=== PATIENT | male | born 1935 | race Caucasian/White ===

== ENCOUNTER 2022-04-01 19:42 | Inpatient (IN) ==
[2022-04-01] MEDS ORDERED: PANTOPRAZOLE 40 MG VIAL IV STA (20:07)
[2022-04-01] MEDS ORDERED: LORazepam 2 MG/1 ML VIAL IV STA (20:56)
[2022-04-01 21:03] LABS: Basophils # 0.1 10*3/uL (0.0-0.2); Basophils % 0.8 % (0.0-0.8); Eosinophils # 0.1 10*3/uL (0.0-0.87); Eosinophils % 0.7 % (0.00-10.9); Hematocrit 39.8 VOL% (42.0-52.0); Hemoglobin 12.8 GM/DL (14.0-18.0); Immature Granulocytes % 0.2 %; Immature Granulocytes Absolute 0.02 #; Lymphocytes # 0.9 10*3/uL (1.4-4.0); Mean Corpuscular HGB Conc 32.2 GM/DL (32-36); Mean Corpuscular Volume 96.8 FL (87-102); Mean Platelet Volume 8.6 FL (9.6-12.0); Monocytes # 0.7 10*3/uL (0.11-0.8); Monocytes % 7.2 % (1.7-12.7); Neutrophils % 82.1 % (38.7-73.9); Platelet Count 249 T/CUMM (130-400); Red Blood Count 4.11 MC/CUMM (3.8-5.5); Red Cell Distribution Width 13.7 % (9.3-17.3)
[2022-04-01 21:14] LABS: PT Patient Result 11.5 SECS (10.1-12.1)
[2022-04-01 21:25] LABS: Bilirubin,Total 0.4 MG/DL (0.20-1.00); Osmolality,Calculated 288.8 MOS/KG (273-304); Potassium 3.7 MMOL/L (3.5-5.1); Total Protein 6.1 G/DL (6.4-8.2)
[2022-04-01 21:51] LABS: Bilirubin,Urine Negative (Negative); Blood, Urine Negative (Negative); Calcium Oxalate Crystals,Urine Few /HPF (Few); Glucose,Urine (UA) Negative (Negative); Hyaline Casts,Urine 5 /LPF (0-3); Ketones,Urine Trace mg/dL (Negative); Mucus,Urine Occasional /LPF (Occasional); Nitrite,Urine Negative (Negative); Protein,Urine Negative (Negative); RBC,Urine 1 /HPF (0-4); Urine Appearance Clear (Clear); Urine Color Yellow (Yellow)
[2022-04-01] MEDS ORDERED: MAGNESIUM HYDROXIDE SUSP 30 ML UDCUP PO STA (23:50)
[2022-04-02] MEDS ORDERED: hydrALAZINE 20 MG/1 ML VIAL IV PRN (00:20)
[2022-04-02] MEDS ORDERED: ONDANSETRON 4 MG/2 ML VIAL IV PRN (00:20)
[2022-04-02] MEDS: LACTATED RINGERS 1,000 ML IV SCH ×4 (01:02→22:51)
[2022-04-02 06:04] LABS: Hematocrit 37.9 VOL% (42.0-52.0); Hemoglobin 12.7 GM/DL (14.0-18.0)
[2022-04-02 06:43] LABS: Calcium 8.8 MG/DL (8.5-10.1); Osmolality,Calculated 282.3 MOS/KG (273-304); Potassium 4.3 MMOL/L (3.5-5.1)
[2022-04-02] MEDS: PANTOPRAZOLE 40 MG VIAL IV SCH ×2 (08:11→21:14)
[2022-04-02 10:04] LABS: Hematocrit 39.3 VOL% (42.0-52.0); Hemoglobin 13.1 GM/DL (14.0-18.0)
[2022-04-02] MEDS: POLYETHYLENE GLYCOL POWDER 17 GM PACK PO SCH ×2 (10:17→21:14)
[2022-04-02] MEDS ORDERED: LACTULOSE 20 GM/30 ML UDCUP PO ONE (11:18)
[2022-04-02 16:29] LABS: Hematocrit 38.9 VOL% (42.0-52.0); Hemoglobin 13.1 GM/DL (14.0-18.0)
[2022-04-02] MEDS: ACETAMINOPHEN 325 MG TABLET PO PRN (21:14)
[2022-04-02 22:41] LABS: Hematocrit 34.9 VOL% (42.0-52.0); Hemoglobin 11.7 GM/DL (14.0-18.0)
[2022-04-03] MEDS ORDERED: ALBUTEROL/IPRATROPIUM 3 ML NEB RESP TX PRN (04:10)
[2022-04-03 05:29] LABS: Basophils # 0.1 10*3/uL (0.0-0.2); Basophils % 0.2 % (0.0-0.8); Hematocrit 33.3 VOL% (42.0-52.0); Immature Granulocytes % 2.4 %; Immature Granulocytes Absolute 0.56 #; Lymphocytes # 0.9 10*3/uL (1.4-4.0); Lymphocytes % 3.8 % (21.2-54.2); Mean Corpuscular Volume 95.1 FL (87-102); Mean Platelet Volume 8.8 FL (9.6-12.0); Monocytes # 1.6 10*3/uL (0.11-0.8); Monocytes % 6.9 % (1.7-12.7); Neutrophils % 86.7 % (38.7-73.9); Platelet Count 210 T/CUMM (130-400); Red Cell Distribution Width 13.9 % (9.3-17.3); White Blood Count 23.4 T/CUMM (4-12)
[2022-04-03 05:41] LABS: Calcium 8.7 MG/DL (8.5-10.1); Potassium 3.7 MMOL/L (3.5-5.1)
[2022-04-03 06:03] LABS: Band Neutrophils 6 % (0-10); Lymphocytes 3 % (20-55); Macrocytosis Slight; Total Cells Counted 100
[2022-04-03 06:04] LABS: Ovalocytes Slight; Platelet Estimate Normal
[2022-04-03] MEDS: LACTATED RINGERS 1,000 ML IV SCH ×3 (08:30→23:56)
[2022-04-03] MEDS: POLYETHYLENE GLYCOL POWDER 17 GM PACK PO SCH (09:04)
[2022-04-03] MEDS: PANTOPRAZOLE 40 MG VIAL IV SCH ×2 (09:05→21:23)
[2022-04-03] MEDS ORDERED: SODIUM CHLORIDE 0.9% 1,000 ML IV ONE ×2 (09:12→11:20)
[2022-04-03] MEDS ORDERED: POLYETHYLENE GLYCOL POWDER 17 GM PACK PO PRN (09:14)
[2022-04-03] MEDS: cefTRIAXone 1,000 MG in SODIUM CHLORIDE 0.9% 100 ML IV SCH (11:52)
[2022-04-03 12:07] LABS: Bacteria,Urine Occasional /HPF (Few); Mucus,Urine Occasional /LPF (Occasional); RBC,Urine 11 /HPF (0-4); Squamous Epithelial Cell,Urine Occasional /HPF (0-10)
[2022-04-03 12:14] LABS: Urine Appearance Slightly Hazy (Clear); Urine Color Yellow (Yellow); Urine Specific Gravity > 1.030 (1.001-1.035); Urine pH 5.5 (4.5-8.0)
[2022-04-03 12:15] LABS: Bilirubin,Urine Negative (Negative); Blood, Urine Small mg/dL (Negative); Glucose,Urine (UA) Negative (Negative); Ketones,Urine Negative (Negative); Nitrite,Urine Positive (Negative); Protein,Urine Trace mg/dL (Negative); Urine Urobilinogen 0.2 eU/dL (<2.0)
[2022-04-03] MEDS: AZITHROMYCIN INJ 500 MG in SODIUM CHLORIDE 0.9% 250 ML IV SCH (12:29)
[2022-04-03] MEDS: MULTIVITAMIN (OCUVITE) TABLET PO SCH (21:23)
[2022-04-03] MEDS: hydrOXYzine HCL 10 MG TABLET PO SCH (21:23)
[2022-04-04] MEDS: ALBUTEROL/IPRATROPIUM 3 ML NEB RESP TX SCH ×2 (02:20→19:00)
[2022-04-04 06:24] LABS: Basophils % 0.2 % (0.0-0.8); Hemoglobin 11.6 GM/DL (14.0-18.0); Immature Granulocytes % 1.9 %; Immature Granulocytes Absolute 0.33 #; Lymphocytes # 0.6 10*3/uL (1.4-4.0); Lymphocytes % 3.3 % (21.2-54.2); Mean Corpuscular HGB Conc 33.1 GM/DL (32-36); Mean Corpuscular Volume 94.6 FL (87-102); Mean Platelet Volume 9.6 FL (9.6-12.0); Monocytes # 0.9 10*3/uL (0.11-0.8); Monocytes % 5.2 % (1.7-12.7); Neutrophils % 89.4 % (38.7-73.9); Platelet Count 206 T/CUMM (130-400); Red Cell Distribution Width 13.8 % (9.3-17.3); White Blood Count 17.4 T/CUMM (4-12)
[2022-04-04 06:49] LABS: Band Neutrophils 3 % (0-10); Lymphocytes 2 % (20-55); Microcytosis 1+; Total Cells Counted 100
[2022-04-04 06:50] LABS: Ovalocytes Slight; Platelet Estimate Normal
[2022-04-04 06:56] LABS: Albumin 2.8 G/DL (3.4-5.0); Bilirubin,Total 0.4 MG/DL (0.20-1.00); Calcium 8.2 MG/DL (8.5-10.1); Osmolality,Calculated 285.1 MOS/KG (273-304); Potassium 3.5 MMOL/L (3.5-5.1); Total Protein 5.7 G/DL (6.4-8.2)
[2022-04-04] MEDS: LACTATED RINGERS 1,000 ML IV SCH ×2 (07:16→14:59)
[2022-04-04] MEDS ORDERED: ALBUTEROL 2.5 MG/3 ML NEB RESP TX PRN (08:57)
[2022-04-04] MEDS: SERTRALINE 25 MG TABLET PO SCH (09:31)
[2022-04-04] MEDS: MULTIVITAMIN (OCUVITE) TABLET PO SCH ×2 (09:31→20:39)
[2022-04-04] MEDS: PANTOPRAZOLE 40 MG VIAL IV SCH ×3 (09:34→20:44)
[2022-04-04] MEDS: cefTRIAXone 1,000 MG in SODIUM CHLORIDE 0.9% 100 ML IV SCH (09:34)
[2022-04-04] MEDS: AZITHROMYCIN INJ 500 MG in SODIUM CHLORIDE 0.9% 250 ML IV SCH (11:04)
[2022-04-04] MEDS ORDERED: POTASSIUM CHLORIDE 20 MEQ TABLET PO ONE (18:54)
[2022-04-04] MEDS: hydrOXYzine HCL 10 MG TABLET PO SCH (20:40)
[2022-04-04] MEDS: ATORVASTATIN 10 MG TABLET PO SCH (20:44)
[2022-04-04] MEDS: METOPROLOL TARTRATE 5 MG/5 ML VIAL IV SCH ×4 (20:57→23:00)
[2022-04-04] MEDS ORDERED: METOPROLOL TARTRATE 50 MG TABLET PO ONE (22:51)
[2022-04-04] MEDS: APIXABAN 5 MG TABLET PO SCH (23:07)
[2022-04-05] MEDS: ALBUTEROL/IPRATROPIUM 3 ML NEB RESP TX SCH ×4 (00:35→19:18)
[2022-04-05] MEDS: DIGOXIN 0.5 MG/2 ML AMP IV SCH ×2 (01:23→07:54)
[2022-04-05] MEDS: LACTATED RINGERS 1,000 ML IV SCH (01:24)
[2022-04-05 06:42] LABS: Basophils # 0.1 10*3/uL (0.0-0.2); Basophils % 0.4 % (0.0-0.8); Eosinophils # 0.1 10*3/uL (0.0-0.87); Eosinophils % 0.5 % (0.00-10.9); Hematocrit 32.5 VOL% (42.0-52.0); Hemoglobin 10.8 GM/DL (14.0-18.0); Immature Granulocytes % 0.6 %; Immature Granulocytes Absolute 0.07 #; Lymphocytes # 1.3 10*3/uL (1.4-4.0); Lymphocytes % 10.4 % (21.2-54.2); Mean Corpuscular HGB Conc 33.2 GM/DL (32-36); Mean Corpuscular Volume 95.3 FL (87-102); Mean Platelet Volume 9.2 FL (9.6-12.0); Monocytes % 7.9 % (1.7-12.7); Neutrophils % 80.2 % (38.7-73.9); Platelet Count 184 T/CUMM (130-400); Red Blood Count 3.41 MC/CUMM (3.8-5.5); Red Cell Distribution Width 13.7 % (9.3-17.3)
[2022-04-05 07:02] LABS: Calcium 8.2 MG/DL (8.5-10.1); Osmolality,Calculated 288.8 MOS/KG (273-304); Potassium 3.6 MMOL/L (3.5-5.1)
[2022-04-05 08:09] LABS: Thyroid Stimulating Hormone 4.18 uIU/ml (0.358-3.74)
[2022-04-05 08:45] LABS: Free T4 (Free Thyroxine) 1.21 NG/DL (0.76-1.46)
[2022-04-05] MEDS: PANTOPRAZOLE 40 MG VIAL IV SCH ×2 (08:56→20:45)
[2022-04-05] MEDS: SERTRALINE 25 MG TABLET PO SCH (08:57)
[2022-04-05] MEDS: APIXABAN 5 MG TABLET PO SCH ×2 (08:57→20:44)
[2022-04-05] MEDS: MULTIVITAMIN (OCUVITE) TABLET PO SCH ×2 (08:57→20:44)
[2022-04-05] MEDS: AZITHROMYCIN INJ 500 MG in SODIUM CHLORIDE 0.9% 250 ML IV SCH (09:04)
[2022-04-05] MEDS ORDERED: MAGNESIUM SULF RIDER 2 GM/50 ML PREMIX IV ONE (09:31)
[2022-04-05] MEDS ORDERED: POTASSIUM CHLORIDE 20 MEQ TABLET PO ONE (09:32)
[2022-04-05] MEDS ORDERED: AMIODARONE INJ 150 MG in DEXTROSE 5% 100 ML IV ONE (09:58)
[2022-04-05] MEDS ORDERED: AMIODARONE INJ 450 MG in DEXTROSE 5% 241 ML IV SCH (10:00)
[2022-04-05] MEDS: cefTRIAXone 1,000 MG in SODIUM CHLORIDE 0.9% 100 ML IV SCH (10:09)
[2022-04-05] MEDS ORDERED: AMIODARONE 150 MG/3 ML VIAL ONE (10:29)
[2022-04-05] MEDS ORDERED: AMIODARONE 450 MG/9 ML VIAL IV ONE (10:29)
[2022-04-05] MEDS ORDERED: SODIUM CHLORIDE 0.45% 1,000 ML IV SCH (10:30)
[2022-04-05] MEDS: AMIODARONE INJ 450 MG in DEXTROSE 5% 241 ML IV SCH (17:07)
[2022-04-05] MEDS: hydrOXYzine HCL 10 MG TABLET PO SCH (20:44)
[2022-04-05] MEDS: ATORVASTATIN 10 MG TABLET PO SCH (20:44)
[2022-04-06] MEDS: ALBUTEROL/IPRATROPIUM 3 ML NEB RESP TX SCH ×4 (00:35→19:20)
[2022-04-06 06:35] LABS: Basophils % 0.4 % (0.0-0.8); Eosinophils # 0.1 10*3/uL (0.0-0.87); Eosinophils % 1.3 % (0.00-10.9); Hemoglobin 11.2 GM/DL (14.0-18.0); Immature Granulocytes % 0.6 %; Immature Granulocytes Absolute 0.06 #; Lymphocytes % 10.1 % (21.2-54.2); Mean Corpuscular HGB Conc 32.9 GM/DL (32-36); Mean Corpuscular Volume 94.2 FL (87-102); Mean Platelet Volume 9.7 FL (9.6-12.0); Monocytes # 0.7 10*3/uL (0.11-0.8); Monocytes % 6.8 % (1.7-12.7); Neutrophils % 80.8 % (38.7-73.9); Platelet Count 218 T/CUMM (130-400); Red Blood Count 3.61 MC/CUMM (3.8-5.5); Red Cell Distribution Width 13.5 % (9.3-17.3); White Blood Count 9.6 T/CUMM (4-12)
[2022-04-06 06:52] LABS: Calcium 7.9 MG/DL (8.5-10.1); Osmolality,Calculated 280.3 MOS/KG (273-304); Potassium 3.1 MMOL/L (3.5-5.1)
[2022-04-06 06:53] LABS: Calcium 8.1 MG/DL (8.5-10.1); Osmolality,Calculated 282.1 MOS/KG (273-304); Potassium 3.3 MMOL/L (3.5-5.1)
[2022-04-06] MEDS: APIXABAN 5 MG TABLET PO SCH ×2 (08:26→20:20)
[2022-04-06] MEDS: PANTOPRAZOLE 40 MG VIAL IV SCH ×2 (08:26→20:27)
[2022-04-06] MEDS: MULTIVITAMIN (OCUVITE) TABLET PO SCH ×2 (08:26→20:26)
[2022-04-06] MEDS: SERTRALINE 25 MG TABLET PO SCH (08:27)
[2022-04-06] MEDS: cefTRIAXone 1,000 MG in SODIUM CHLORIDE 0.9% 100 ML IV SCH (08:35)
[2022-04-06] MEDS ORDERED: POTASSIUM CHLORIDE 20 MEQ TABLET PO ONE (08:39)
[2022-04-06] MEDS: AMIODARONE INJ 450 MG in DEXTROSE 5% 241 ML IV SCH ×2 (09:11→23:27)
[2022-04-06] MEDS: METOPROLOL TARTRATE 25 MG TABLET PO SCH ×2 (09:30→20:27)
[2022-04-06] MEDS: AZITHROMYCIN INJ 500 MG in SODIUM CHLORIDE 0.9% 250 ML IV SCH (09:30)
[2022-04-06] MEDS: AMIODARONE 200 MG TABLET PO SCH ×2 (09:30→20:26)
[2022-04-06] MEDS: ASCORBIC ACID 500 MG TABLET PO SCH ×2 (09:30→20:26)
[2022-04-06] MEDS ORDERED: LORazepam 2 MG/1 ML VIAL IV ONE ×2 (11:44→22:35)
[2022-04-06] MEDS: hydrOXYzine HCL 10 MG TABLET PO SCH (20:26)
[2022-04-06] MEDS: ATORVASTATIN 10 MG TABLET PO SCH (20:27)
[2022-04-06] MEDS ORDERED: LORazepam 0.5 MG TABLET PO PRN (22:35)
[2022-04-07] MEDS: LORazepam 1 MG TABLET PO PRN ×2 (00:19→11:50)
[2022-04-07] MEDS ORDERED: LORazepam 2 MG/1 ML VIAL IV ONE (03:15)
[2022-04-07 04:46] LABS: Basophils # 0.1 10*3/uL (0.0-0.2); Basophils % 0.4 % (0.0-0.8); Eosinophils % 0.2 % (0.00-10.9); Hematocrit 36.8 VOL% (42.0-52.0); Immature Granulocytes % 0.8 %; Immature Granulocytes Absolute 0.12 #; Lymphocytes # 0.7 10*3/uL (1.4-4.0); Lymphocytes % 4.5 % (21.2-54.2); Mean Corpuscular HGB Conc 32.6 GM/DL (32-36); Mean Corpuscular Volume 94.6 FL (87-102); Mean Platelet Volume 9.4 FL (9.6-12.0); Monocytes # 1.1 10*3/uL (0.11-0.8); Monocytes % 6.6 % (1.7-12.7); Neutrophils % 87.5 % (38.7-73.9); Platelet Count 260 T/CUMM (130-400); Red Blood Count 3.89 MC/CUMM (3.8-5.5); Red Cell Distribution Width 13.6 % (9.3-17.3); White Blood Count 15.9 T/CUMM (4-12)
[2022-04-07 05:01] LABS: Calcium 8.9 MG/DL (8.5-10.1); Osmolality,Calculated 281.1 MOS/KG (273-304); Potassium 3.5 MMOL/L (3.5-5.1)
[2022-04-07 05:08] LABS: Lymphocytes 4 % (20-55); Total Cells Counted 100
[2022-04-07] MEDS: ALBUTEROL/IPRATROPIUM 3 ML NEB RESP TX SCH ×4 (07:11→19:36)
[2022-04-07] MEDS ORDERED: POTASSIUM CHLORIDE 20 MEQ TABLET PO ONE (08:49)
[2022-04-07] MEDS ORDERED: MAGNESIUM SULF RIDER 2 GM/50 ML PREMIX IV ONE (08:49)
[2022-04-07] MEDS ORDERED: FUROSEMIDE 40 MG/4 ML VIAL IV ONE (08:49)
[2022-04-07] MEDS: APIXABAN 5 MG TABLET PO SCH ×2 (09:04→20:03)
[2022-04-07] MEDS: METOPROLOL TARTRATE 25 MG TABLET PO SCH ×2 (09:04→20:02)
[2022-04-07] MEDS: MULTIVITAMIN (OCUVITE) TABLET PO SCH ×2 (09:04→20:02)
[2022-04-07] MEDS: AMIODARONE 200 MG TABLET PO SCH ×2 (09:04→20:03)
[2022-04-07] MEDS: PANTOPRAZOLE 40 MG VIAL IV SCH ×2 (09:04→20:05)
[2022-04-07] MEDS: ASCORBIC ACID 500 MG TABLET PO SCH ×2 (09:05→20:02)
[2022-04-07] MEDS: SERTRALINE 25 MG TABLET PO SCH (09:05)
[2022-04-07] MEDS: cefTRIAXone 1,000 MG in SODIUM CHLORIDE 0.9% 100 ML IV SCH (09:05)
[2022-04-07] MEDS: AZITHROMYCIN INJ 500 MG in SODIUM CHLORIDE 0.9% 250 ML IV SCH (09:25)
[2022-04-07] MEDS ORDERED: DIGOXIN 0.5 MG/2 ML AMP IV ONE (10:46)
[2022-04-07] MEDS ORDERED: METOPROLOL TARTRATE 5 MG/5 ML VIAL IV ONE ×2 (12:48→13:05)
[2022-04-07] MEDS: MEROPENEM 500 MG in SODIUM CHLORIDE 0.9% 100 ML IV SCH ×2 (13:32→18:02)
[2022-04-07] MEDS: hydrOXYzine HCL 10 MG TABLET PO SCH (20:02)
[2022-04-07] MEDS: ATORVASTATIN 10 MG TABLET PO SCH (20:03)
[2022-04-08] MEDS: ALBUTEROL/IPRATROPIUM 3 ML NEB RESP TX SCH ×4 (00:59→19:30)
[2022-04-08] MEDS: MEROPENEM 500 MG in SODIUM CHLORIDE 0.9% 100 ML IV SCH ×4 (01:13→18:00)
[2022-04-08 06:37] LABS: Basophils # 0.1 10*3/uL (0.0-0.2); Basophils % 0.3 % (0.0-0.8); Eosinophils % 0.2 % (0.00-10.9); Hematocrit 38.3 VOL% (42.0-52.0); Hemoglobin 12.5 GM/DL (14.0-18.0); Immature Granulocytes % 0.7 %; Immature Granulocytes Absolute 0.13 #; Lymphocytes % 5.8 % (21.2-54.2); Mean Corpuscular HGB Conc 32.6 GM/DL (32-36); Mean Corpuscular Volume 94.1 FL (87-102); Mean Platelet Volume 9.2 FL (9.6-12.0); Monocytes # 1.3 10*3/uL (0.11-0.8); Monocytes % 7.4 % (1.7-12.7); Neutrophils % 85.6 % (38.7-73.9); Platelet Count 324 T/CUMM (130-400); Red Blood Count 4.07 MC/CUMM (3.8-5.5); Red Cell Distribution Width 13.6 % (9.3-17.3); White Blood Count 17.4 T/CUMM (4-12)
[2022-04-08 07:10] LABS: Calcium 9.1 MG/DL (8.5-10.1); Osmolality,Calculated 283.1 MOS/KG (273-304); Potassium 3.3 MMOL/L (3.5-5.1)
[2022-04-08] MEDS: ASCORBIC ACID 500 MG TABLET PO SCH ×2 (08:14→20:01)
[2022-04-08] MEDS: METOPROLOL TARTRATE 25 MG TABLET PO SCH ×2 (08:14→20:00)
[2022-04-08] MEDS: AMIODARONE 200 MG TABLET PO SCH (08:14)
[2022-04-08] MEDS: APIXABAN 5 MG TABLET PO SCH ×2 (08:14→20:00)
[2022-04-08] MEDS: MULTIVITAMIN (OCUVITE) TABLET PO SCH ×2 (08:14→20:00)
[2022-04-08] MEDS: PANTOPRAZOLE 40 MG VIAL IV SCH ×2 (08:14→20:00)
[2022-04-08] MEDS: SERTRALINE 25 MG TABLET PO SCH (08:14)
[2022-04-08] MEDS ORDERED: AMIODARONE INJ 450 MG in DEXTROSE 5% 241 ML IV SCH (09:00)
[2022-04-08] MEDS: AZITHROMYCIN INJ 500 MG in SODIUM CHLORIDE 0.9% 250 ML IV SCH (09:10)
[2022-04-08] MEDS ORDERED: FUROSEMIDE 40 MG/4 ML VIAL IV ONE (12:21)
[2022-04-08 12:42] LABS: Arterial Base Excess iSTAT 2 MMOL/L (-2.5-2.5); Arterial Bicarbonate iSTAT 25.6 MMOL/L (20-26); Arterial O2 Saturation iSTAT 97 % (95-100); Arterial PCO2 iSTAT 37 MM HG (35-48); Arterial PO2 iSTAT 86 MM HG (80-95); Arterial Total CO2 iSTAT 27 MMO/L (23-27); Arterial pH iSTAT 7.444 (7.35-7.45)
[2022-04-08] MEDS: POTASSIUM CHLORIDE RIDER 10 MEQ/100 ML PREMIX IV PRN ×5 (12:58→23:39)
[2022-04-08] MEDS: AMIODARONE INJ 450 MG in DEXTROSE 5% 241 ML IV SCH (14:56)
[2022-04-08] MEDS: hydrOXYzine HCL 10 MG TABLET PO SCH (20:00)
[2022-04-08] MEDS: ATORVASTATIN 10 MG TABLET PO SCH (20:00)
[2022-04-08] MEDS: LORazepam 1 MG TABLET PO PRN (22:04)
[2022-04-09] MEDS: ALBUTEROL/IPRATROPIUM 3 ML NEB RESP TX SCH ×4 (00:12→19:25)
[2022-04-09] MEDS: MEROPENEM 500 MG in SODIUM CHLORIDE 0.9% 100 ML IV SCH ×4 (00:37→18:39)
[2022-04-09] MEDS: POTASSIUM CHLORIDE RIDER 10 MEQ/100 ML PREMIX IV PRN ×3 (00:40→02:40)
[2022-04-09] MEDS: AMIODARONE INJ 450 MG in DEXTROSE 5% 241 ML IV SCH (06:19)
[2022-04-09 06:31] LABS: Basophils # 0.1 10*3/uL (0.0-0.2); Basophils % 0.4 % (0.0-0.8); Eosinophils # 0.1 10*3/uL (0.0-0.87); Eosinophils % 0.9 % (0.00-10.9); Hematocrit 38.5 VOL% (42.0-52.0); Hemoglobin 12.7 GM/DL (14.0-18.0); Immature Granulocytes % 0.9 %; Immature Granulocytes Absolute 0.12 #; Lymphocytes % 7.2 % (21.2-54.2); Mean Corpuscular Volume 93.9 FL (87-102); Mean Platelet Volume 10.9 FL (9.6-12.0); Monocytes # 1.2 10*3/uL (0.11-0.8); Monocytes % 8.8 % (1.7-12.7); Neutrophils % 81.8 % (38.7-73.9); Platelet Count 239 T/CUMM (130-400); Red Cell Distribution Width 13.8 % (9.3-17.3); White Blood Count 13.8 T/CUMM (4-12)
[2022-04-09 06:50] LABS: Calcium 8.8 MG/DL (8.5-10.1); Osmolality,Calculated 277.7 MOS/KG (273-304); Potassium 4.1 MMOL/L (3.5-5.1)
[2022-04-09] MEDS: METOPROLOL TARTRATE 25 MG TABLET PO SCH (08:56)
[2022-04-09] MEDS: MULTIVITAMIN (OCUVITE) TABLET PO SCH ×2 (08:56→21:12)
[2022-04-09] MEDS: APIXABAN 5 MG TABLET PO SCH ×2 (08:56→21:12)
[2022-04-09] MEDS: ASCORBIC ACID 500 MG TABLET PO SCH ×2 (08:56→21:12)
[2022-04-09] MEDS: SERTRALINE 25 MG TABLET PO SCH (08:56)
[2022-04-09] MEDS: PANTOPRAZOLE 40 MG VIAL IV SCH ×2 (08:57→21:13)
[2022-04-09] MEDS: AZITHROMYCIN INJ 500 MG in SODIUM CHLORIDE 0.9% 250 ML IV SCH (09:09)
[2022-04-09] MEDS ORDERED: METOPROLOL TARTRATE 25 MG TABLET PO ONE (09:37)
[2022-04-09] MEDS: AMIODARONE 200 MG TABLET PO SCH ×2 (14:43→21:12)
[2022-04-09] MEDS: hydrOXYzine HCL 10 MG TABLET PO SCH (21:12)
[2022-04-09] MEDS: ATORVASTATIN 10 MG TABLET PO SCH (21:12)
[2022-04-09] MEDS: METOPROLOL TARTRATE 50 MG TABLET PO SCH (21:22)
[2022-04-09] MEDS: LORazepam 1 MG TABLET PO PRN (22:01)
[2022-04-10] MEDS: ALBUTEROL/IPRATROPIUM 3 ML NEB RESP TX SCH ×4 (00:05→20:34)
[2022-04-10] MEDS: MEROPENEM 500 MG in SODIUM CHLORIDE 0.9% 100 ML IV SCH ×4 (00:58→18:42)
[2022-04-10 04:32] LABS: Basophils % 0.2 % (0.0-0.8); Eosinophils % 0.3 % (0.00-10.9); Hematocrit 35.3 VOL% (42.0-52.0); Hemoglobin 11.5 GM/DL (14.0-18.0); Immature Granulocytes % 0.6 %; Immature Granulocytes Absolute 0.07 #; Lymphocytes % 7.6 % (21.2-54.2); Mean Corpuscular HGB Conc 32.6 GM/DL (32-36); Mean Corpuscular Volume 95.9 FL (87-102); Mean Platelet Volume 8.9 FL (9.6-12.0); Neutrophils % 83.3 % (38.7-73.9); Platelet Count 367 T/CUMM (130-400); Red Blood Count 3.68 MC/CUMM (3.8-5.5); Red Cell Distribution Width 13.9 % (9.3-17.3); White Blood Count 12.5 T/CUMM (4-12)
[2022-04-10 05:08] LABS: Calcium 8.9 MG/DL (8.5-10.1); Potassium 3.3 MMOL/L (3.5-5.1)
[2022-04-10] MEDS: POTASSIUM CHLORIDE RIDER 10 MEQ/100 ML PREMIX IV PRN ×4 (05:38→10:04)
[2022-04-10] MEDS ORDERED: POTASSIUM CHLORIDE 20 MEQ TABLET PO ONE (07:24)
[2022-04-10] MEDS: SERTRALINE 25 MG TABLET PO SCH (08:12)
[2022-04-10] MEDS: AMIODARONE 200 MG TABLET PO SCH ×2 (08:12→22:06)
[2022-04-10] MEDS: ASCORBIC ACID 500 MG TABLET PO SCH ×2 (08:12→21:48)
[2022-04-10] MEDS: APIXABAN 5 MG TABLET PO SCH ×2 (08:12→21:48)
[2022-04-10] MEDS: METOPROLOL TARTRATE 50 MG TABLET PO SCH ×2 (08:12→21:48)
[2022-04-10] MEDS: PANTOPRAZOLE 40 MG VIAL IV SCH ×2 (08:17→20:54)
[2022-04-10] MEDS: MULTIVITAMIN (OCUVITE) TABLET PO SCH ×2 (09:02→21:48)
[2022-04-10] MEDS: AZITHROMYCIN INJ 500 MG in SODIUM CHLORIDE 0.9% 250 ML IV SCH (10:03)
[2022-04-10] MEDS: hydrOXYzine HCL 10 MG TABLET PO SCH (21:48)
[2022-04-10] MEDS: ATORVASTATIN 10 MG TABLET PO SCH (21:48)
[2022-04-10] MEDS: LORazepam 1 MG TABLET PO PRN (21:53)
[2022-04-11] MEDS: ALBUTEROL/IPRATROPIUM 3 ML NEB RESP TX SCH ×3 (00:10→12:55)
[2022-04-11] MEDS: MEROPENEM 500 MG in SODIUM CHLORIDE 0.9% 100 ML IV SCH ×3 (00:36→12:07)
[2022-04-11 04:51] LABS: Basophils # 0.1 10*3/uL (0.0-0.2); Basophils % 0.4 % (0.0-0.8); Eosinophils # 0.2 10*3/uL (0.0-0.87); Eosinophils % 1.4 % (0.00-10.9); Hematocrit 33.7 VOL% (42.0-52.0); Hemoglobin 10.9 GM/DL (14.0-18.0); Immature Granulocytes % 0.8 %; Lymphocytes # 1.1 10*3/uL (1.4-4.0); Lymphocytes % 8.6 % (21.2-54.2); Mean Corpuscular HGB Conc 32.3 GM/DL (32-36); Mean Corpuscular Volume 94.7 FL (87-102); Mean Platelet Volume 8.9 FL (9.6-12.0); Monocytes % 8.2 % (1.7-12.7); Neutrophils % 80.6 % (38.7-73.9); Platelet Count 409 T/CUMM (130-400); Red Blood Count 3.56 MC/CUMM (3.8-5.5); Red Cell Distribution Width 13.9 % (9.3-17.3); White Blood Count 12.4 T/CUMM (4-12)
[2022-04-11 05:20] LABS: Calcium 8.8 MG/DL (8.5-10.1); Osmolality,Calculated 292.7 MOS/KG (273-304); Potassium 4.1 MMOL/L (3.5-5.1)
[2022-04-11] MEDS: METOPROLOL TARTRATE 50 MG TABLET PO SCH (08:51)
[2022-04-11] MEDS: SERTRALINE 25 MG TABLET PO SCH (08:51)
[2022-04-11] MEDS: AMIODARONE 200 MG TABLET PO SCH (08:51)
[2022-04-11] MEDS: PANTOPRAZOLE 40 MG VIAL IV SCH (08:51)
[2022-04-11] MEDS: MULTIVITAMIN (OCUVITE) TABLET PO SCH (08:51)
[2022-04-11] MEDS: APIXABAN 5 MG TABLET PO SCH (08:51)
[2022-04-11] MEDS: LORazepam 1 MG TABLET PO PRN (08:51)
[2022-04-11] MEDS: ASCORBIC ACID 500 MG TABLET PO SCH (08:52)
[2022-04-11] MEDS ORDERED: amLODIPine 5 MG TABLET PO SCH (11:00)
[2022-04-11] MEDS: ACETAMINOPHEN 325 MG TABLET PO PRN (12:10)
[2022-04-11 17:36] VITALS: BP 104/67
== END 2022-04-11 18:55 | DRG 377 ==
LOC: EDUNIT# → N.ED 19:42 → N.2W 19:42 → SUATTDRO 04-03 11:53 → N.ICU 04-05 10:53 → N.TELEN 04-10 16:05
PROVIDERS: ADMIT Internal Medicine; ATTEND Internal Medicine